=== PATIENT | male | born 1940 | race Caucasian/White ===

== ENCOUNTER 2017-02-01 14:39 | Emergency (ER) | payer MEDICARE, BC ==
[2017-02-01 16:56] VITALS: BP 112/68
[2017-02-01] MEDS ORDERED: predniSONE 20 MG Tab PO ONE (17:03)
[2017-02-01] MEDS ORDERED: Loratadine 10 MG Tab PO ONE (17:04)
--- NOTE | 2017-02-01 17:12 | EDM.PDOC ---
Scribed by Carlota Barba 02/01/17 [id number] for Rufino Malin MD ED HPI GENERAL MEDICAL PROBLEM - General Chief Complaint: ENT Problem Stated Complaint: CANT SEEM TO HEAR Time Seen by Provider: 02/01/17 16:49 Source of Information: Reports: Patient, RN, RN Notes Reviewed History Limitations: Reports: No Limitations - History of Present Illness INITIAL COMMENTS - FREE TEXT/NARRATIVE: Arrives from home by POV with complaint "I can't seem to hear well". Started on right side, now on left side as well. Onset a week ago and gradually getting worse. Today developed some ear pain also. Quality: Reports: Ache Severity: Moderate Improves with: Reports: None Worsens with: Reports: None Associated Symptoms: Reports: No Other Symptoms - Related Data Allergies Allergy/AdvReac Type Severity Reaction Status Date / Time No Known Allergies Allergy Verified 12/07/13 11:35 Home Meds: Home Meds Antiox#10/Om3/DHA/EPA/Lut/Zeax [I-Caps with Lutein-[place] 3 SFG] 1 each PO [History] Fish Oil/[place]-3 Fatty Acids [Fish Oil 1,000 MG] 2 g PO DAILY 12/07/13 [History] Lutein PO DAILY 12/07/13 [History] Past Medical History - Past Surgical History HEENT Surgical History: Reports: Adenoidectomy, Tonsillectomy GI Surgical History: Reports: Appendectomy, Colonoscopy Social & Family History - Alcohol Use Days Per Week of Alcohol Use: 0 - Recreational Drug Use Recreational Drug Use: No Drug Use in Last 12 Months: No ED ROS ENT - Review of Systems Review Of Systems: ROS reveals no pertinent complaints other than HPI. ED EXAM, ENT - Physical Exam Exam: See Below Exam Limited By: No Limitations General Appearance: Alert, WD/WN, No Apparent Distress Eye Exam: Bilateral Eye: Normal Inspection Ears: Other (Right TM retracted with clear air fluid level. Left TM bulging with clear air fluid level. ) Nose: Normal Inspection, Normal Mucousa, No Blood Mouth/Throat: Normal Inspection, Normal Gums, Normal Lips, Normal Oropharynx, Normal Teeth Head: Atraumatic, Normocephalic Neck: Normal Inspection, Supple, Non-Tender, Full Range of Motion Respiratory/Chest: No Respiratory Distress, Lungs Clear, Normal Breath Sounds, No Accessory Muscle Use, Chest Non-Tender Cardiovascular: Normal Peripheral Pulses, Regular Rate, Rhythm, No Edema, No Gallop, No JVD, No Murmur, No Rub Back: Normal Inspection, Full Range of Motion Extremities: Normal Inspection, Normal Range of Motion, Non-Tender, No Pedal Edema, Normal Capillary Refill Neurological: Other (hard of hearing) Psychiatric: Normal Affect, Normal Mood Skin: Warm, Dry, Intact, Normal Color, No Rash Lymphatic: No Adenopathy Course - Vital Signs Text/Narrative:: See nurses notes for vitals. Last Recorded V/S: Last Vital Signs Temp 36.8 C 02/01/17 16:55 Pulse 64 02/01/17 16:55 Resp 16 02/01/17 16:55 BP 112/68 02/01/17 16:55 Pulse Ox 98 02/01/17 16:55 - Orders/Labs/Meds Meds: Medications Discontinued Medications Generic Name Dose Route Start Last Admin Trade Name Freq PRN Reason Stop Dose Admin Loratadine 10 mg 02/01/17 17:04 Claritin PO 02/01/17 17:05 ONETIME ONE Prednisone 60 mg 02/01/17 17:03 Prednisone PO 02/01/17 17:04 ONETIME ONE Departure - Departure Time of Disposition: 16:58 Disposition: Home, Self-Care 01 Condition: Good Clinical Impression: Allergic sinusitis Eustachian tube dysfunction Qualifiers: Laterality: bilateral Qualified Code(s): H69.83 - Other specified disorders of Eustachian tube, bilateral - Discharge Information Instructions: Barotitis Media, Allergies, [id number]-mv-[id number] Forms: ED Department Discharge Additional Instructions: RX: Prednisone 20mg. Zyrtec 10mg. Frequent pinch nose and gently blow. Follow up in clinic i 3-4 days for recheck. I have read and agree with the documentation that has been completed regarding this visit. By signing this record, I attest that the documentation was completed in my physical presence and is an accurate record of the encounter.
== END 2017-02-01 17:30 | disposition home or self-care (01) ==
LOC: DL.ED 14:39
DX: H69.83 Other specified disorders of Eustachian tube, bilateral (principal); J30.9 Allergic rhinitis, unspecified; Z79.899 Other long term (current) drug therapy; Z98.890 Other specified postprocedural states; Z90.49 Acquired absence of other specified parts of digestive tract
CPT/HCPCS: 99282; A9270

== ENCOUNTER 2017-10-23 05:58 | Day surgery (SDC) | payer MEDICARE, BC ==
[2017-10-23] MEDS ORDERED: Midazolam 1 MG/ML 2 ML SDV IV ONE ×7 (05:59→08:05)
[2017-10-23] MEDS ORDERED: fentaNYL 100 MCG/2 ML SDV IV ONE ×3 (05:59→07:57)
[2017-10-23] MEDS ORDERED: Dextrose 5%-0.45% NaCl 1,000 ML IV SCH (06:00)
[2017-10-23] MEDS ORDERED: Sodium Chloride 0.9% 10 ML Syringe FLUSH PRN (06:00)
[2017-10-23] MEDS ORDERED: Midazolam 1 MG/ML 2 ML SDV ONE (06:14)
[2017-10-23] MEDS ORDERED: fentaNYL 100 MCG/2 ML SDV ONE (06:14)
--- NOTE | 2017-10-23 09:24 | OR ---
DATE: 10/23/2017 PROCEDURES: Total colonoscopy, narrow-band imaging, and multiple cold snare polypectomies. INSTRUMENT USED: CF-H180 AL Olympus video colonoscope. PREMEDICATIONS: Fentanyl 100 mcg intravenous, Versed 4 mg intravenous. Nasal O2 cannula. The procedure was done under pulse oximetry, BP recording, and curatorial assistant. INDICATION: The patient with recent alteration in bowel habits. Colonoscopic examination is done for detection of any polypoid lesions and removal, endoscopic hemostasis therapy if needed. DESCRIPTION OF PROCEDURE: Initial rectal exam was unremarkable. Rigid anoscopy was normal. The colonoscope was passed with ease up to the ileocecal area. Photographs were taken of the cecum showing superficial, just less than 1 cm-sized, sessile, benign-appearing polyp. NBI views were obtained. Piecemeal cold snare polypectomy was done. The tissues were retrieved and sent for histopathology. No bleeding was noted from any of the visualized areas at the commencement of the examination. No stricture. No vascular ectasia. No large isolated ulcerations seen. No evidence of diffuse inflammatory bowel disease in the form of friability, contact bleeding, or ulcerations. Probing the proximal sides of folds and flexures, using adequate distention and clearing up the stool material, withdrawal of the scope was made. In the distal descending colon, 5- mm sized benign-appearing polyp was noted. NBI views were taken. Photographs were obtained. Cold snare polypectomy was done. The tissue was retrieved and sent for histopathology. No bleeding was noted from any of the visualized areas at the completion of examination. IMPRESSION: Colonic polyps. The patient tolerated the procedure well. [facility] /[id number]
[2017-10-23 10:45] VITALS: BP 118/68
== END 2017-10-23 10:28 | disposition home or self-care (01) ==
LOC: DL.ENDO 05:58
PROVIDERS: ATTEND Internal Medicine Gastroenterology
DX: D12.0 Benign neoplasm of cecum (principal); D12.4 Benign neoplasm of descending colon; F41.1 Generalized anxiety disorder; N40.0 Benign prostatic hyperplasia without lower urinary tract symptoms; E78.00 Pure hypercholesterolemia, unspecified; Z90.49 Acquired absence of other specified parts of digestive tract
CPT/HCPCS: J2250; J3010; J7042

== ENCOUNTER 2017-11-18 10:58 | Day surgery (SDC) | payer MEDICARE, BC ==
[2017-11-18] MEDS ORDERED: Sodium Chloride 0.9% 10 ML Syringe IV ONE (10:59)
[2017-11-18] MEDS ORDERED: Dexamethasone 4 MG/ML SDV IV ONE (10:59)
[2017-11-18] MEDS ORDERED: Midazolam 1 MG/ML 2 ML SDV IV ONE (10:59)
[2017-11-18] MEDS ORDERED: Moxifloxacin 0.5% Ophth Soln 3 ML Bottle EYELF ONE (11:30)
[2017-11-18] MEDS ORDERED: Phenylephrine 10% Ophth Soln 5 ML Bot EYELF ONE (11:30)
[2017-11-18] MEDS ORDERED: Sodium Chloride 0.9% 10 ML Syringe FLUSH PRN (11:30)
[2017-11-18] MEDS ORDERED: Povidone-Iodine 5% Sterile Ophth Soln 30 ML Bottle EYELF ONE ×2 (11:30→12:39)
[2017-11-18] MEDS ORDERED: Proparacaine 0.5% Ophth Soln 15 ML Bottle EYELF ONE (11:30)
[2017-11-18] MEDS ORDERED: Timolol Maleate 0.5% Ophth Soln 5 ML Bottle EYELF ONE (11:30)
[2017-11-18] MEDS ORDERED: Ondansetron 4 MG/2 ML SDV IVPUSH PRN (11:30)
[2017-11-18] MEDS ORDERED: Cataract Ophth Solution EYELF ONE (11:30)
[2017-11-18] MEDS ORDERED: Phenylephrine 10% Ophth Soln 5 ML Bot EYELF PRN (11:30)
[2017-11-18] MEDS ORDERED: Acetaminophen 325 MG Tab PO PRN (11:30)
[2017-11-18] MEDS ORDERED: Tetracaine HCl/PF 0.5% 4 ML Bottle EYELF ONE (12:38)
[2017-11-18] MEDS ORDERED: Vancomycin 500 MG SDV EYELF ONE (12:40)
[2017-11-18] MEDS ORDERED: Lidocaine 1% 30 ML SDV ONE (12:40)
[2017-11-18] MEDS ORDERED: Chondroitin Sulfate/Hyaluronate Sodium Ophth Inj 0.75 ML Syringe EYELF ONE (12:41)
[2017-11-18] MEDS ORDERED: Balanced Salt Solution Ophth Irrig 500 ML Bottle IOCULAR ONE (12:41)
[2017-11-18] MEDS ORDERED: Apraclonidine 0.5% Ophth Soln 5 ML Bot EYELF ONE (12:42)
[2017-11-18] MEDS ORDERED: Dexamethasone/Neomycin/Polymyxin B Ophth Oint 3.5 GM Tube EYELF ONE (12:42)
[2017-11-18 13:31] VITALS: BP 130/87
--- NOTE | 2017-11-18 14:08 | OR ---
DATE: 11/18/2017 PREOPERATIVE DIAGNOSIS: Visually significant mixed cataract, left eye. POSTOPERATIVE DIAGNOSIS: Visually significant mixed cataract, left eye. PROCEDURE: Extracapsular cataract extraction with intraocular lens implant, left eye. ANESTHESIA: Topical/local MAC. COMPLICATIONS: None. INDICATION: Mr. Arceo was seen in the clinic. He has noticed a progressive change in vision, difficulty with bright lights and light sensitivity, and difficulty reading. His clinical examination reveals visually significant mixed cataract. I explained options to Mr. Arceo. I offered cataract surgery; and I explained risks including but not limited to infection, retinal detachment, loss of vision, and need for additional surgery amongst others. He also has a history of age-related macular degeneration, and I did explain that his ultimate visual potential may be limited by retinal health. We discussed implant options. He has requested a monofocal implant. He understands that he may require glasses for some activities following surgery. OPERATIVE DESCRIPTION: After informed consent was obtained and the risks, benefits, and alternatives were explained, the patient was brought to the operative suite and topical anesthesia was administered. The patient was then prepped and draped in the sterile fashion, and attention was placed on the left eye. A sterile lid speculum was placed into the left eye to allow operative exposure. A full-thickness paracentesis was made in the temporal portion of the operative eye. Preservative-free lidocaine 0.1 mL was injected into the anterior chamber followed by viscoelastic. A full-thickness corneal incision was then made into the anterior chamber. A bent needle cystotome was used to create a small ghassan in the anterior capsule. The capsulorrhexis forceps was then used to create a 360-degree curvilinear capsulorrhexis. The nucleus was then removed using a phacoemulsification handpiece, and the remaining cortical material was then removed with irrigation and aspiration handpiece. Following removal of the cortical material, the capsular bag was then inspected and noted to be free of any holes or tears. Viscoelastic was then injected into the capsular bag, and the intraocular lens was inserted into the capsular bag. The viscoelastic material was then removed from both the anterior and posterior chambers and from behind the IOL. The lens and capsular bag were then reinspected. The IOL was well centered and the capsular bag intact. The wound and paracentesis sites were inspected and hydrated with balanced saline solution. Both were found to be self-sealing. The intraocular pressure was assessed digitally and found to be within normal range. A good red reflex was noted at the completion of the procedure. No complications occurred during the operation. At the completion of the procedure, Maxitrol, Voltaren, and Iopidine drops were placed into the operative eye. A sterile eye shield was placed over the operative eye, and the patient was transported to the postoperative recovery area having tolerated the procedure well. Postoperative instructions were given along with a postoperative appointment. The patient was advised to call with any questions or concerns. [facility] /[id number]
== END 2017-11-18 13:43 | disposition home or self-care (01) ==
LOC: DL.SDS 10:58
PROVIDERS: ATTEND Ophthalmology
DX: H25.812 Combined forms of age-related cataract, left eye (principal); I10 Essential (primary) hypertension; E78.00 Pure hypercholesterolemia, unspecified; Z79.899 Other long term (current) drug therapy
CPT/HCPCS: 00142; A9270-GY; J1100; J2250; J3370; J7050; V2632

== ENCOUNTER 2017-11-25 07:50 | Day surgery (SDC) | payer MEDICARE, BC ==
[2017-11-25] MEDS ORDERED: Dexamethasone 4 MG/ML SDV IV ONE (07:51)
[2017-11-25] MEDS ORDERED: Midazolam 1 MG/ML 2 ML SDV IV ONE (07:51)
[2017-11-25] MEDS ORDERED: Sodium Chloride 0.9% 10 ML Syringe IV ONE (07:51)
[2017-11-25] MEDS ORDERED: Acetaminophen 325 MG Tab PO PRN (08:00)
[2017-11-25] MEDS ORDERED: Proparacaine 0.5% Ophth Soln 15 ML Bottle EYERT ONE (08:00)
[2017-11-25] MEDS ORDERED: Timolol Maleate 0.5% Ophth Soln 5 ML Bottle EYERT ONE (08:00)
[2017-11-25] MEDS ORDERED: Ondansetron 4 MG/2 ML SDV IVPUSH PRN (08:00)
[2017-11-25] MEDS ORDERED: Moxifloxacin 0.5% Ophth Soln 3 ML Bottle EYERT ONE (08:00)
[2017-11-25] MEDS ORDERED: Phenylephrine 10% Ophth Soln 5 ML Bot EYERT PRN (08:00)
[2017-11-25] MEDS ORDERED: Phenylephrine 10% Ophth Soln 5 ML Bot EYERT ONE (08:00)
[2017-11-25] MEDS ORDERED: Povidone-Iodine 5% Sterile Ophth Soln 30 ML Bottle EYERT ONE ×2 (08:00→09:08)
[2017-11-25] MEDS ORDERED: Sodium Chloride 0.9% 10 ML Syringe FLUSH PRN (08:00)
[2017-11-25] MEDS ORDERED: Cataract Ophth Solution EYERT ONE (08:00)
[2017-11-25] MEDS ORDERED: Tetracaine HCl/PF 0.5% 4 ML Bottle EYERT ONE (09:07)
[2017-11-25] MEDS ORDERED: Vancomycin 500 MG SDV EYERT ONE (09:09)
[2017-11-25] MEDS ORDERED: Lidocaine 1% 30 ML SDV ONE (09:09)
[2017-11-25] MEDS ORDERED: Balanced Salt Solution Ophth Irrig 500 ML Bottle IOCULAR ONE (09:10)
[2017-11-25] MEDS ORDERED: Chondroitin Sulfate/Hyaluronate Sodium Ophth Inj 0.75 ML Syringe EYERT ONE (09:10)
[2017-11-25] MEDS ORDERED: Apraclonidine 0.5% Ophth Soln 5 ML Bot EYERT ONE (09:11)
[2017-11-25] MEDS ORDERED: Dexamethasone/Neomycin/Polymyxin B Ophth Oint 3.5 GM Tube EYERT ONE (09:13)
[2017-11-25 12:27] VITALS: BP 128/76
--- NOTE | 2017-11-25 15:54 | OR ---
DATE: 11/25/2017 PREOPERATIVE DIAGNOSIS: Visually significant mixed cataract, right eye. POSTOPERATIVE DIAGNOSIS: Visually significant mixed cataract, right eye. PROCEDURE: Extracapsular cataract extraction with intraocular lens implant, right eye. ANESTHESIA: Topical/local MAC. COMPLICATIONS: None. INDICATION: Mr. Arceo was seen in the clinic with complaints of blurred vision. His clinical examination revealed visually significant cataract. He also has a history of age-related macular degeneration. I explained options to Mr. Arceo. I offered cataract surgery; and I explained risks including, but not limited to infection, retinal detachment, loss of vision, and need for additional surgery amongst others. We discussed implant options. He has requested a monofocal implant. He understands that he may require glasses following surgery. He also understands that his visual potential may be slightly limited because of the macular degeneration history. He has voiced an understanding and wished to proceed. OPERATIVE DESCRIPTION: After informed consent was obtained and the risks, benefits, and alternatives were explained, the patient was brought to the operative suite and topical anesthesia was administered. The patient was then prepped and draped in the sterile fashion, and attention was placed on the right eye. A sterile lid speculum was placed into the right eye to allow operative exposure. A full-thickness paracentesis was made in the temporal portion of the operative eye. Preservative-free lidocaine 0.1 mL was injected into the anterior chamber followed by viscoelastic. A full-thickness corneal incision was then made into the anterior chamber. A bent needle cystotome was used to create a small ghassan in the anterior capsule. The capsulorrhexis forceps was then used to create a 360-degree curvilinear capsulorrhexis. The nucleus was then removed using a phacoemulsification handpiece, and the remaining cortical material was then removed with irrigation and aspiration handpiece. Following removal of the cortical material, the capsular bag was then inspected and noted to be free of any holes or tears. Viscoelastic was then injected into the capsular bag, and the intraocular lens was inserted into the capsular bag. The viscoelastic material was then removed from both the anterior and posterior chambers and from behind the IOL. The lens and capsular bag were then reinspected. The IOL was well centered and the capsular bag intact. The wound and paracentesis sites were inspected and hydrated with balanced saline solution. Both were found to be self-sealing. The intraocular pressure was assessed digitally and found to be within normal range. A good red reflex was noted at the completion of the procedure. No complications occurred during the operation. At the completion of the procedure, Maxitrol, Voltaren, and Iopidine drops were placed into the operative eye. A sterile eye shield was placed over the operative eye, and the patient was transported to the postoperative recovery area having tolerated the procedure well. Postoperative instructions were given along with a postoperative appointment. The patient was advised to call with any questions or concerns. [facility] /[id number]
== END 2017-11-25 10:15 | disposition home or self-care (01) ==
LOC: DL.SDS 07:50
PROVIDERS: ATTEND Ophthalmology
DX: H25.811 Combined forms of age-related cataract, right eye (principal); I10 Essential (primary) hypertension; E78.00 Pure hypercholesterolemia, unspecified
CPT/HCPCS: 66984; A9270; J3370; J7050; 00142; J1100; J2250; V2632

== ENCOUNTER 2020-09-26 15:09 | Emergency (ER) | payer MEDICARE, BC ==
--- NOTE | 2020-09-26 15:31 | EDM.PDOC ---
ED HPI GENERAL MEDICAL PROBLEM - General Stated Complaint: SPLK AMB[facility] Time Seen by Provider: 09/26/20 15:19 Source of Information: Reports: Patient History Limitations: Reports: No Limitations - History of Present Illness INITIAL COMMENTS - FREE TEXT/NARRATIVE: This 79 yo male patient reports to the ED with right shoulder pain due to slipping on the ice. The patient reports he was helping out at the [employer] when he slipped on the ice and ended up sliding to the ground. The patient denies any fall, but has pain to his right shoulder. The patient believes he was lying outside for at least 1 hours prior to EMS arrival. The patient reports he is having difficulties feeling his fingers and his hands are cool to touch. Onset: Today (at) Duration: Constant Location: Reports: Upper Extremity, Right Quality: Reports: Ache, Dull Severity: Moderate Improves with: Reports: None Worsens with: Reports: None Context: Reports: Other Associated Symptoms: Reports: No Other Symptoms Right Shoulder Pain Score (Numeric/FACES): 6 - Related Data Allergies Allergy/AdvReac Type Severity Reaction Status Date / Time No Known Allergies Allergy Verified 11/25/17 08:05 Home Meds: Home Meds Antiox.mv No.10/Omeg3s/Lut/Asmita [I-Caps with Lutein-[place] 3 SFG] 1 each PO ATDISCHARGE 12/07/13 [History] Saw [place] 186 mg PO BID 10/22/17 [History] Lutein 20 mg PO BID 11/17/17 [History] Max Vision\ 1 tab PO DAILY 11/17/17 [History] Multivitamin [Men's Multi-Vitamin] 1 tab PO DAILY 11/17/17 [History] Past Medical History HEENT History: Reports: Cataract, Hard of Hearing, Impaired Vision, Macular Degeneration Other HEENT History: HX CATARACT SURGERY TO LEFT EYE Cardiovascular History: Reports: None Respiratory History: Reports: None Gastrointestinal History: Reports: Other (See Below) Other Gastrointestinal History: alteration in bowel habits Genitourinary History: Reports: BPH Musculoskeletal History: Reports: Other (See Below) Other Musculoskeletal History: degenerative joint disease Neurological History: Reports: None Psychiatric History: Reports: Anxiety Endocrine/Metabolic History: Reports: None Hematologic History: Reports: None Immunologic History: Reports: None Oncologic (Cancer) History: Reports: None Dermatologic History: Reports: None - Infectious Disease History Infectious Disease History: Reports: Chicken Pox, Measles, Mumps - Past Surgical History Head Surgeries/Procedures: Reports: None HEENT Surgical History: Reports: Adenoidectomy, Cataract Surgery, Tonsillectomy Cardiovascular Surgical History: Reports: None GI Surgical History: Reports: Appendectomy, Colonoscopy Social & Family History - Family History Family Medical History: No Pertinent Family History - Caffeine Use Caffeine Use: Reports: Coffee, Soda, Tea Other Caffeine Use: 5 cups daily Review of Systems - Review of Systems Review Of Systems: Comprehensive ROS is negative, except as noted in HPI. ED EXAM, GENERAL - Physical Exam Exam: See Below Exam Limited By: No Limitations General Appearance: Alert, WD/WN, No Apparent Distress Eye Exam: Bilateral Eye: EOMI, Normal Inspection, PERRL Ears: Normal External Exam, Normal Canal, Hearing Grossly Normal, Normal TMs Nose: Normal Inspection, Normal Mucosa, No Blood Throat/Mouth: Normal Inspection, Normal Lips, Normal Teeth, Normal Gums, Normal Oropharynx, Normal Voice, No Airway Compromise Head: Atraumatic, Normocephalic Neck: Normal Inspection, Supple, Non-Tender, Full Range of Motion Respiratory/Chest: No Respiratory Distress, Lungs Clear, Normal Breath Sounds, No Accessory Muscle Use, Chest Non-Tender Cardiovascular: Normal Peripheral Pulses, Regular Rate, Rhythm, No Edema, No Gallop, No JVD, No Murmur, No Rub GI/Abdominal: Normal Bowel Sounds, Soft, Non-Tender, No Organomegaly, No Distention, No Abnormal Bruit, No Mass (Male) Exam: Deferred Rectal (Males) Exam: Deferred Back Exam: Normal Inspection, Full Range of Motion, NT Extremities: Normal Inspection, No Pedal Edema, Normal Capillary Refill, Limited Range of Motion (right arm) Neurological: Alert, Oriented, CN II-XII Intact, Normal Cognition, Normal Gait, Normal Reflexes, No Motor/Sensory Deficits Psychiatric: Normal Affect, Normal Mood Skin Exam: Warm, Dry, Intact, Normal Color, No Rash Lymphatic: No Adenopathy Course - Vital Signs Last Recorded V/S: Last Vital Signs Temp 36.2 C 09/26/20 15:23 Pulse 58 L 09/26/20 15:23 Resp 16 09/26/20 15:23 BP 85/32 L 09/26/20 15:23 Pulse Ox 95 09/26/20 15:23 - Orders/Labs/Meds Orders: Active Orders 24 hr Category Date Time Status EKG 12 Lead [EKG Documentation Completion] [RC] ROUTINE Care 09/26/20 15:52 Active CULTURE BLOOD [BC] Stat Lab 09/26/20 16:27 Ordered CULTURE BLOOD [BC] Stat Lab 09/26/20 16:27 Ordered Heparin Sodium/0.45% NaCl [Heparin 25,000 Units in 1/2 Med 09/26/20 17:34 Ordered NS 500 ML] 25,000 units in 500 ml IV ONETIME Blood Culture x2 Reflex Set [OM.PC] Stat Oth 09/26/20 16:27 Ordered Medication Orders Heparin Sodium/Sodium Chloride (Heparin 25,000 Units In 1/2 Ns 500 Ml) 25,000 units in 500 mls @ 0 mls/hr IV ONETIME ONE Stop: 09/26/20 17:35 Labs: Laboratory Tests 09/26/20 09/26/20 09/26/20 Range/Units 16:17 16:44 16:44 WBC 20.0 H (5.0-10.0) 10^3/uL RBC 4.75 (4.6-6.2) 10^6/uL Hgb 16.0 (14.0-18.0) g/dL Hct 45.9 (40.0-54.0) % MCV 96.6 (80-100) fL MCH 33.7 (27.0-34.0) pg MCHC 34.9 (33.0-35.0) g/dL Plt Count 156 (150-450) 10^3/uL Neut % (Auto) 84.2 H (42.2-75.2) % Lymph % (Auto) 6.0 L (20.5-50.1) % [place] % (Auto) 9.1 H (2-8) % Eos % (Auto) 0.4 L (1.0-3.0) % Baso % (Auto) 0.3 (0.0-1.0) % Sodium 139 (136-145) mmol/L Potassium 4.2 (3.5-5.1) mmol/L Chloride 100 (98-107) mmol/L Carbon Dioxide 27 (21-32) mmol/L Anion Gap 16.2 H (7-13) mEq/L BUN 17 (7-18) mg/dL Creatinine 1.54 H (0.70-1.30) mg/dL Est Cr Clr Drug Dosing TNP Estimated GFR (MDRD) 44 BUN/Creatinine Ratio 11.0 (No establ ref range) Glucose 132 H (74-99) mg/dL Lactic Acid 3.8 H* (0.4-2.0) mmol/L Calcium 9.6 (8.5-10.1) mg/dL Total Bilirubin 0.8 (0.2-1.0) mg/dL AST 36 (15-37) U/L ALT 40 (16-63) U/L Alkaline Phosphatase 65 (46-116) U/L Creatine Kinase 173 (39-308) U/L Troponin I 1.217 H* (0.000-0.056) ng/mL Total Protein 7.1 (6.4-8.2) g/dL Albumin 3.8 (3.4-5.0) g/dL Globulin 3.3 Albumin/Globulin Ratio 1.2 SARS CoV-2 RNA Rapid GAMA (NEGATIVE) 09/26/20 Range/Units 17:34 WBC (5.0-10.0) 10^3/uL RBC (4.6-6.2) 10^6/uL Hgb (14.0-18.0) g/dL Hct (40.0-54.0) % MCV (80-100) fL MCH (27.0-34.0) pg MCHC (33.0-35.0) g/dL Plt Count (150-450) 10^3/uL Neut % (Auto) (42.2-75.2) % Lymph % (Auto) (20.5-50.1) % [place] % (Auto) (2-8) % Eos % (Auto) (1.0-3.0) % Baso % (Auto) (0.0-1.0) % Sodium (136-145) mmol/L Potassium (3.5-5.1) mmol/L Chloride (98-107) mmol/L Carbon Dioxide (21-32) mmol/L Anion Gap (7-13) mEq/L BUN (7-18) mg/dL Creatinine (0.70-1.30) mg/dL Est Cr Clr Drug Dosing Estimated GFR (MDRD) BUN/Creatinine Ratio (No establ ref range) Glucose (74-99) mg/dL Lactic Acid (0.4-2.0) mmol/L Calcium (8.5-10.1) mg/dL Total Bilirubin (0.2-1.0) mg/dL AST (15-37) U/L ALT (16-63) U/L Alkaline Phosphatase (46-116) U/L Creatine Kinase (39-308) U/L Troponin I (0.000-0.056) ng/mL Total Protein (6.4-8.2) g/dL Albumin (3.4-5.0) g/dL Globulin Albumin/Globulin Ratio SARS CoV-2 RNA Rapid GAMA Negative (NEGATIVE) Meds: Medications Generic Name Dose Route Start Last Admin Trade Name Freq PRN Reason Stop Dose Admin Heparin Sodium/Sodium Chloride 25,000 units in 500 mls @ 0 mls/hr 09/26/20 17:34 Heparin 25,000 Units In 1/2 Ns 500 Ml IV 09/26/20 17:35 ONETIME ONE 12 UNITS/KG/HR Discontinued Medications Generic Name Dose Route Start Last Admin Trade Name Freq PRN Reason Stop Dose Admin Aspirin 324 mg 09/26/20 17:30 09/26/20 17:37 Aspirin PO 09/26/20 17:31 324 mg ONETIME ONE Administration Heparin Sodium (Porcine) 4,000 units 09/26/20 17:34 Heparin Sodium IVPUSH 09/26/20 17:35 .BOLUS ONE - Re-Assessments/Exams Free Text/Narrative Re-Assessment/Exam: 09/26/20 18:01 An initial call was placed to [facility] for transfer, but they had no beds available at the time of transfer. Departure - Departure Time of Disposition: 17:56 Disposition: DC/Tfer to Acute Hospital 02 Condition: Poor Clinical Impression: NSTEMI (non-ST elevated myocardial infarction), Elevated troponin I level - Discharge Information *PRESCRIPTION DRUG MONITORING PROGRAM REVIEWED*: Not Applicable *COPY OF PRESCRIPTION DRUG MONITORING REPORT IN PATIENT TAMIA: Not Applicable Forms: Interfacility Transfer EMTALA Care Plan Goals: Discussed the patient's history, examination, lab, EKG and x-ray results with Dr. Matthews ([facility]). Dr. Matthews accepted the patient for continued evaluation and further management. The patient will be transported by [facility]. Sepsis Event Note (ED) - Focused Exam Vital Signs: Vital Signs Temp Pulse Resp BP Pulse Ox 09/26/20 15:23 36.2 C 58 L 16 85/32 L 95 - My Orders Last 24 Hours: My Active Orders 09/26/20 15:52 EKG 12 Lead [EKG Documentation Completion] [RC] ROUTINE 09/26/20 16:27 CULTURE BLOOD [BC] Stat CULTURE BLOOD [BC] Stat Blood Culture x2 Reflex Set [OM.PC] Stat 09/26/20 17:34 Heparin Sodium/0.45% NaCl [Heparin 25,000 Units in 1/2 NS 500 ML] 25,000 units in 500 ml IV ONETIME - Assessment/Plan Last 24 Hours: My Active Orders 09/26/20 15:52 EKG 12 Lead [EKG Documentation Completion] [RC] ROUTINE 09/26/20 16:27 CULTURE BLOOD [BC] Stat CULTURE BLOOD [BC] Stat Blood Culture x2 Reflex Set [OM.PC] Stat 09/26/20 17:34 Heparin Sodium/0.45% NaCl [Heparin 25,000 Units in 1/2 NS 500 ML] 25,000 units in 500 ml IV ONETIME
[2020-09-26 15:36] VITALS: BP 85/32; PULSE 58
--- NOTE | 2020-09-26 16:38 | CR ---
EXAMINATION: Chest 1V Frontal SEX: Male AGE: 79 years CLINICAL HISTORY: 71-year-old male with chest/right shoulder pain. Interpretation: No obvious abnormality of the bony thorax. Mild left ventricular configuration presumably reflecting poor inspiratory effort and AP magnification. External monitors. No pulmonary vascular congestion, cephalization of flow, alveolar edema or dependent pleural fluid accumulation (effusion). No lung mass or hilar lymphadenopathy. No focal lobar infiltrate/atelectasis, alveolar infiltrate, air bronchograms or peripheral "groundglass" interstitial densities. No pneumothorax or pneumomediastinum. CONCLUSION: No acute cardiopulmonary abnormality.
--- NOTE | 2020-09-26 16:41 | CR ---
EXAMINATION: Shoulder Comp Rt 2 views. SEX: Male AGE: 79 years CLINICAL HISTORY: 79-year-old male complaining of right shoulder pain. INTERPRETATION: Abnormal. 1. Elevation of the humeral head relative the right scapula suggesting rotator cuff impingement. No juxta articular calcifications. 2. Comment Hill-Sachs notch like deformity lateral aspect of the humeral head consistent with old dislocation. 3. No sign of pathologic skeletal lesion, acute right shoulder fracture, acromioclavicular separation or glenohumeral dislocation. Reactive arthritic changes ipsilateral right AC joint. 4. No foreign bodies other than teletypesetter monitor leads. Underlying upper right lung clear. CONCLUSION: Arthritis right acromioclavicular joint. Abnormalities of the glenohumeral joint suggesting old dislocation and/or rotator cuff tear. CONCLUSION:
[2020-09-26 17:23] LABS: ANION GAP 16.2 mEq/L (7-13); CHLORIDE,CL 100 mmol/L (98-107); SODIUM,NA 139 mmol/L (136-145)
[2020-09-26] MEDS ORDERED: Aspirin 81 MG Tab.Chew PO ONE (17:30)
[2020-09-26] MEDS ORDERED: Heparin Sodium/0.45% NaCl 25,000 UNITS/500 ML BAG IV ONE ×2 (17:34→18:06)
[2020-09-26] MEDS ORDERED: Heparin Sodium 5,000 Units/ML Vial IVPUSH ONE (17:34)
[2020-09-26] MEDS ORDERED: Heparin Sodium/0.45% NaCl 500 ML ONE (17:49)
[2020-09-26] MEDS ORDERED: Ondansetron 4 MG/2 ML SDV IVPUSH ONE (17:59)
== END 2020-09-26 18:45 ==
LOC: DL.ED 15:09
DX: I21.4 Non-ST elevation (NSTEMI) myocardial infarction (principal); R79.89 Other specified abnormal findings of blood chemistry; M25.511 Pain in right shoulder; Z20.822 Contact with and (suspected) exposure to COVID-19; W00.0XXA Fall on same level due to ice and snow, initial encounter
CPT/HCPCS: 36415; 71045; 73030; 80053; 82550; 83605; 84484; 85025; 87040; 93005; 96365; 96375; 99285; A9270; J1644; J2405; U0002